=== PATIENT | female | born 1950 ===

== ENCOUNTER → 2023-08-16 13:43 | Outpatient (BNVA) | payer MEDICARE, OTHER, SELFPAY | PROVIDERS: Referring Provider Registered Nurse; Visit Provider Internal Medicine Cardiovascular Disease | DX: R07.9 Chest pain, unspecified (principal); R94.31 Abnormal electrocardiogram [ECG] [EKG] | CPT/HCPCS: 93005; 99214 ==

== ENCOUNTER 2023-09-10 12:54 | Outpatient (CLI) | payer MEDICARE, OTHER, SELFPAY ==
--- NOTE | 2023-09-10 13:15 | USCV_ITS ---
Rosario Grissom Age: 73 Gender: F : 1950 Exam Date: 09/10/2023 13:29 Ordering Phys: Linda Calle MD ([email or web address]) Technologist: ANDRE [place]am [place] [facility] [place]: CHEST PAIN AND SHORTNESS OF BREATH BP: 128 / 86 HR: 77 Rhythm: Sinus Technical Quality: Adequate MEASUREMENTS (Male / Female) Normal Values 2D ECHO LV Diastolic Diameter PLAX 3.8 cm 4.2 - 5.9 / 3.9 - 5.3 cm IVS Diastolic Thickness 1.4 cm 0.6 - 1.0 / 0.6 - 0.9 cm IVS Systolic Thickness 2.0 cm LVPW Diastolic Thickness 1.9 cm 0.6 - 1.0 / 0.6 - 0.9 cm LVPW Systolic Thickness 2.3 cm LVOT Diameter 2.0 cm LV Ejection Fraction 2D Teich 65.8 % LV Ejection Fraction MOD 4C 61.2 % LV Ejection Fraction MOD 2C 59.1 % LV Ejection Fraction 2C AL 61.6 % LA Diameter 3.4 cm RA Systolic Volume 4C AL 12.2 ml RA Systolic Volume 4C MOD 11.7 ml LA Sys Volume AL 23.3 cm cubed LA Sys Volume Index AL 14.0 cm cubed/m squared Aorta at Sinotubular Diameter 2.3 cm IVC Diameter 1.8 cm M-MODE LA Ao Ratio MM 1.2 AV Cusp Separation MM 1.6 cm DOPPLER AV Peak Velocity 141.0 cm/s LVOT Peak Velocity 99.0 cm/s AV Area Cont Eq vti 2.6 cm squared AV Area Cont Eq pk 2.2 cm squared MV Peak Velocity 112.0 cm/s MV Area PHT 3.0 cm squared Mitral E to A Ratio 0.7 TR Peak Velocity 141.0 cm/s TR Peak Gradient 8.0 mmHg TR Mean Velocity 111.0 cm/s TR Mean Gradient 5.3 mmHg TR Velocity Time Integral 37.1 cm TV Peak E Velocity 51.0 cm/s Right Atrial Pressure 3.0 mmHg Pulmonary Artery Systolic Pressu 11.0 mmHg PV Peak Velocity 109.0 cm/s RV Ejection Time 0.3 s FINDINGS Left Ventricle Normal left ventricular size and systolic function, EF 61%. No regional wall motion abnormalities. Mild left ventricular hypertrophy. Grade I/IV diastolic dysfunction (abnormal relaxation filling pattern), normal to mildly elevated filling pressures. Right Ventricle The right ventricle is normal in size and function. Right Atrium The right atrium is normal in size. Left Atrium Mildly increased left atrial size. Mitral Valve No gross abnormalities noted Aortic Valve Thickened aortic valve. Tricuspid Valve No gross abnormalities noted Pulmonic Valve Trace pulmonary valve regurgitation. Pericardium Normal pericardium without effusion. Aorta Normal ascending aorta dimension. IVC Normal inferior vena cava. CONCLUSIONS Normal left ventricular size and systolic function, EF 61%. No regional wall motion abnormalities. Mild left ventricular hypertrophy. Grade I/IV diastolic dysfunction (abnormal relaxation filling pattern), normal to mildly elevated filling pressures. Mildly increased left atrial size. Thickened aortic valve. Trace pulmonary valve regurgitation. There is no pericardial effusion. There are no intracardiac masses. No similar previous studies are available for comparison Dr Maria Dolores Wagner MD FACC (Electronically Signed) Final Date: 14 September 2023 00:46 S
== END 2023-09-10 12:55 | disposition home or self-care (01) ==
LOC: RAD 12:54
PROVIDERS: Visit Provider Internal Medicine Cardiovascular Disease
DX: I35.0 Nonrheumatic aortic (valve) stenosis (principal); I50.30 Unspecified diastolic (congestive) heart failure; R07.9 Chest pain, unspecified; R06.02 Shortness of breath
CPT/HCPCS: 93306

== ENCOUNTER → 2024-02-14 10:38 | Outpatient (BNVA) | payer MEDICARE, OTHER, SELFPAY | PROVIDERS: Visit Provider Nurse Practitioner Family | DX: R94.31 Abnormal electrocardiogram [ECG] [EKG] (principal); E78.5 Hyperlipidemia, unspecified; I11.9 Hypertensive heart disease without heart failure; I45.9 Conduction disorder, unspecified | CPT/HCPCS: 99214 ==

== ENCOUNTER 2024-04-11 08:42 | Inpatient (IN) | payer MEDICARE, OTHER, SELFPAY ==
[2024-04-11] VITALS (23 sets, daily range): BP systolic 85–145; BP diastolic 47–88; PULSE 60–87; RESP 12–22; TEMP 36.3–37.4; O2SAT 93–100; BMI 24.0
--- NOTE | 2024-04-11 08:50 | XR_ITS ---
WS: [id number] XR hip LT 2-3V wo/w pel* [id number] REASON FOR EXAM: trauma FINDINGS: Near subcapital oblique fracture of the femoral neck with a short portion of the femoral neck still contiguous with the intact intertrochanteric bone. There is approximately a centimeter of superior displacement of the distal femoral fragment. Left pubic rami and acetabulum intact. XR/XR hip LT 2-3V wo/w pel* [id number] IMPRESSION: Acute left hip fracture as above.
--- NOTE | 2024-04-11 08:57 | W.ED.FALL ---
HPI - Fall General: Chief Complaint: Fall Stated Complaint: fall - left hip pain Time Seen by Provider: 04/11/24 08:44 History of Present Illness: 74-year-old female presents emergency room via EMS after ground-level fall at home while she was taking out her dog. She is complaining of left hip pain she denies any other injuries from the fall. Did not strike her head there is no loss conscious denies chest pain or abdominal pain. No previous injury to the left hip. She did receive 200 mcg fentanyl and 4 mg of Zofran en route. Associated symptoms-after fall: Denies abdominal pain, chest pain or neck pain Related Data Home Medications ?Medication ?Instructions ?Recorded ?Confirmed cholecalciferol (vitamin D3) 1,250 1,250 mcg PO .EVERY 2 WEEKS 08/16/23 04/11/24 mcg (50,000 unit) capsule famotidine 20 mg tablet 20 mg PO DAILY 08/16/23 04/11/24 gabapentin 100 mg capsule 100 mg PO DAILY 08/16/23 04/11/24 latanoprost 0.005 % eye drops 1 drp ophthalmic (eye) DAILY 08/16/23 04/11/24 losartan 50 mg-hydrochlorothiazide 1 tab PO DAILY 08/16/23 04/11/24 12.5 mg tablet metformin 1,000 mg tablet 1,000 mg PO BIDWMEAL 08/16/23 04/11/24 pantoprazole 40 mg tablet,delayed 40 mg PO DAILY 08/16/23 04/11/24 release simvastatin 20 mg tablet 20 mg PO DAILY 08/16/23 04/11/24 Allergies Allergy/AdvReac Type Severity Reaction Status Date / Time No Known Allergies Allergy Verified 02/14/24 10:48 Review of Systems Const: Denies: fever(s) or chills Card: Denies: chest pain Resp: Denies: dyspnea GI: Denies: abdominal pain : Denies: dysuria, urinary frequency or urinary urgency Musc: Reports: joint pain; Denies: neck pain or back pain Skin/Breast: Denies: rash PFSH ED PFSH: Medical History LVH (left ventricular hypertrophy) Junctional rhythm HLD (hyperlipidemia) HTN (hypertension) Social History Smoking and tobacco/nicotine status: never used tobacco/nicotine Physical Exam Const: GENERAL APPEARANCE: cooperative ORIENTATION/CONSCIOUSNESS: Yes awake, Yes oriented to person, Yes oriented to place and Yes oriented to time HENMT: COMMON NORMALS: normocephalic, atraumatic and hearing grossly normal bilaterally HEAD & SCALP: normocephalic and atraumatic Resp: COMMON NORMALS: normal respiratory effort, No retractions, No use of accessory muscles and clear to auscultation bilaterally AUSCULTATION: clear to auscultation bilaterally Cardio: COMMON NORMALS: regular rate, regular rhythm and No murmurs present (Cardio) RATE: regular rate RHYTHM: regular rhythm GI: COMMON NORMALS: Soft to palpation and No hepatosplenomegaly present AUSCULTATION: Yes normoactive bowel sounds PALPATION: Yes Soft to palpation, No Tenderness to palpation present (GI), No Guarding due to palpation present (GI) and Yes No hepatosplenomegaly present Extremity: COMMON NORMALS: normal to inspection, capillary refill normal, no clubbing, cyanosis or edema, no calf tenderness and no pedal edema NARRATIVE EXTREMITY EXAM: Left leg externally rotated dorsalis pedis posterior tibialis pulse present neurovascularly intact Neuro: SENSORIUM/ORIENTATION: Yes oriented to person, Yes oriented to place and Yes oriented to time Skin: COMMON NORMALS: no rashes or lesions noted GENERAL SKIN EXAM: no rashes or lesions noted Course Vital Signs: Vital signs: Vital Signs Temperature 99.3 F 04/11/24 12:39 Pulse Rate 87 04/11/24 12:39 Respiratory Rate 18 04/11/24 12:39 Blood Pressure 145/86 04/11/24 12:39 Pulse Oximetry 96 04/11/24 12:39 Oxygen Delivery Me thod Room Air 04/11/24 12:39 MDM - Fall Medical Decision Making Left femoral neck fracture. Other labs and imaging reviewed. EKG junctional rhythm no acute changes. Some LVH. Patient has not eaten since yesterday she is not any anticoagulants no other injuries no chest pain. Discussed with hospitalist and with orthopedics. Admit orders written Medical Records I reviewed the patient's medical records. Lab Data I reviewed the patient's lab results. 04/11/24 09:19 04/11/24 09:19 Radiology Impressions Hip/Pelvis X-Ray 04/11/24 08:50 IMPRESSION: Acute left hip fracture as above. Chest X-Ray 04/11/24 08:59 IMPRESSION: No acute chest abnormality. Laboratory Results WBC 4.13 10^3/uL (3.29-11.43) 04/11/24 09:19 RBC 4.37 10^6/uL (3.85-5.65) 04/11/24 09:19 Hgb 13.20 g/dL (11.27-16.99) 04/11/24 09:19 Hct 39.4 % (36-47) 04/11/24 09:19 MCV 90.2 fl (85-98) 04/11/24 09:19 MCH 30.2 pg (27-33) 04/11/24 09:19 MCHC 33.5 g/dL (30-55) 04/11/24 09:19 RDW 12.8 % (12.1-15.1) 04/11/24 09:19 Plt Count 204 10^3/cmm (157-399) 04/11/24 09:19 MPV 10.0 fL (7.4-10.4) 04/11/24 09:19 Neut % (Auto) 68.4 % 04/11/24 09:19 Lymph % (Auto) 18.4 % 04/11/24 09:19 Donley % (Auto) 12.3 % 04/11/24 09:19 Eos % (Auto) 0.2 % 04/11/24 09:19 Baso % (Auto) 0.5 % 04/11/24 09:19 Neut # (Auto) 2.82 10^3/uL (1.8-7.7) 04/11/24 09:19 Lymph # (Auto) 0.8 10^3/uL (0.8-4.8) 04/11/24 09:19 Donley # (Auto) 0.5 10^3/uL (0.2-0.9) 04/11/24 09:19 Eos # (Auto) 0.0 10^3/uL (0.0-0.8) 04/11/24 09:19 Baso # (Auto) 0.0 10^3/uL (0.0-0.1) 04/11/24 09:19 Nucleated RBC % (auto) 0 % 04/11/24 09:19 Nucleated RBCs # 0.0 /100WBC 04/11/24 09:19 Sodium 130 mmol/L (136-145) L 04/11/24 09:19 Potassium 3.9 mmol/L (3.5-5.1) 04/11/24 09:19 Chloride 91 mmol/L (98-107) L 04/11/24 09:19 Carbon Dioxide 23 mmol/L (22-29) 04/11/24 09:19 Anion Gap 19.9 (5-19) H 04/11/24 09:19 BUN 17 mg/dL (8-23) 04/11/24 09:19 Creatinine 1.1 mg/dL (0.5-0.9) H 04/11/24 09:19 GFR Calculation Not Reportable 04/11/24 09:19 Glucose 168 mg/dL (65-115) H 04/11/24 09:19 Calculated Osmolality 275 mOsm/kg (285-295) L 04/11/24 09:19 Calcium 9.4 mg/dL (8.5-10.5) 04/11/24 09:19 Total Bilirubin 0.5 mg/dL (0.15-1.2) 04/11/24 09:19 AST 47 U/L (0-32) H 04/11/24 09:19 ALT 31 U/L (0-33) 04/11/24 09:19 Alkaline Phosphatase 103 U/L (35-105) 04/11/24 09:19 Total Protein 8.4 g/dL (6.6-8.7) 04/11/24 09:19 Albumin 4.1 g/dL (3.5-5.2) 04/11/24 09:19 Globulin 4.3 g/dL (1.3-4.6) 04/11/24 09:19 Urine Color Yellow (Yellow) 04/11/24 10:01 Urine Appearance Clear (CLEAR) 04/11/24 10:01 Urine pH 5.5 (5-7) 04/11/24 10:01 Ur Specific Letts 1.025 (1.005-1.030) 04/11/24 10:01 Urine Protein Trace (Negative) A 04/11/24 10:01 Urine Glucose (UA) Negative (Normal) 04/11/24 10:01 Urine Ketones Trace (Negative) 04/11/24 10:01 Urine Blood Negative (Negative) 04/11/24 10:01 Urine Nitrate Negative (Negative) 04/11/24 10:01 Urine Bilirubin Negative (Negative) 04/11/24 10:01 Urine Urobilinogen 1.0 mg/dL (Negative) 04/11/24 10:01 Ur Leukocyte Esterase Negative (Negative) 04/11/24 10:01 Urine RBC 6-10 /hpf (0-2) 04/11/24 10:01 Urine WBC 0-5 /hpf (0-5) 04/11/24 10:01 Ur Squamous Epith Cells 0-5 /hpf (0-5) 04/11/24 10:01 Amorphous Sediment Trace /hpf 04/11/24 10:01 Urine Bacteria None seen /hpf (NONE) 04/11/24 10:01 Hyaline Casts 20.67 /lpf 04/11/24 10:01 Ur Oval Fat Bodies 1+ /hpf 04/11/24 10:01 All radiology interpretation(s) finalized by discharge Discharge Plan Discharge Patient Disposition: Admitted As Inpatient Admit Provider: Minh Evans Clinical Impression: Fracture of femoral neck, left Condition: Stable Coding Level of Care Code ED [employer] [employer] for Marcell Almeida
--- NOTE | 2024-04-11 08:59 | XR_ITS ---
WS: [id number] XR chest 1V portable [id number] REASON FOR EXAM: dyspnea/cough FINDINGS: Moderate tortuosity of the thoracic aorta. Heart at the upper limits of normal in size. The lungs are hypoexpanded. There is bilateral calcified granulomatous disease. No acute pulmonary parenchymal or pleural abnormality is noted. Moderate degenerative spondylosis in thoracic spine. XR/XR chest 1V portable [id number] IMPRESSION: No acute chest abnormality.
--- NOTE | 2024-04-11 08:59 | ECG_ITS ---
[facility] Date: 2024-04-11 Pat Name: Rosario Grissom Department: Room: Gender: Female Call Or Contact Centre Team Leader: : 1950 Requested By: Gregory Bolden Order Number: [id number] Reading MD: LEANNE PITTS Measurements Intervals [place] Rate: 87 P: -90 MN: 115 QRS: -13 QRSD: 90 T: 41 QT: 386 QTc: 466 Interpretive Statements JUNCTIONAL RHYTHM POSSIBLE ANTERIOR MYOCARDIAL INFARCTION , PROBABLY OLD [30 ms Q WAVE IN V3/V4, OR R < 0.2 mV IN V4] POSSIBLE INFERIOR MYOCARDIAL INFARCTION , PROBABLY OLD [30 ms Q WAVE IN II/aVF] ABNORMAL RHYTHM ECG Compared to ECG 08/16/2023 13:52:35 Myocardial infarct finding now present Electronically Signed On 04-12-2024 19:28:19 [employer] by LEANNE PITTS [id number]
[2024-04-11 09:31] LABS: Basophils % 0.5 %; Eosinophils % 0.2 %; Hematocrit 39.4 % (36-47); Lymphocytes # 0.8 10^3/uL (0.8-4.8); Lymphocytes % 18.4 %; Mean Corpuscular HGB Conc 33.5 g/dL (30-55); Mean Corpuscular Hemoglobin 30.2 pg (27-33); Mean Corpuscular Volume 90.2 fl (85-98); Monocytes # 0.5 10^3/uL (0.2-0.9); Monocytes % 12.3 %; Neutrophils # 2.82 10^3/uL (1.8-7.7); Neutrophils % 68.4 %; Nucleated Red Blood Cells % 0 %; Platelet Count 204 10^3/cmm (157-399); Red Blood Count 4.37 10^6/uL (3.85-5.65); Red Cell Distribution Width 12.8 % (12.1-15.1); White Blood Count 4.13 10^3/uL (3.29-11.43)
[2024-04-11 09:43] LABS: Alanine Aminotransferase 31 U/L (0-33); Albumin Level 4.1 g/dL (3.5-5.2); Alkaline Phosphatase 103 U/L (35-105); Anion Gap 19.9 (5-19); Aspartate Amino Transferase 47 U/L (0-32); Blood Urea Nitrogen 17 mg/dL (8-23); Calcium 9.4 mg/dL (8.5-10.5); Carbon Dioxide 23 mmol/L (22-29); Chloride 91 mmol/L (98-107); Creatinine Clr Calc Pharmacy 39.1463; Globulin 4.3 g/dL (1.3-4.6); Glucose 168 mg/dL (65-115); Osmolality Calculated 275 mOsm/kg (285-295); Potassium 3.9 mmol/L (3.5-5.1); Sodium 130 mmol/L (136-145); Total Bilirubin 0.5 mg/dL (0.15-1.2); Total Protein 8.4 g/dL (6.6-8.7)
[2024-04-11 10:10] LABS: Bilirubin Urine Negative (Negative); Blood Urine Negative (Negative); Glucose Urine UA Negative (Normal); Ketones Urine Trace (Negative); Leukocyte Esterase Urine Negative (Negative); Nitrate Urine Negative (Negative); Protein Urine Trace (Negative); Specific Gravity, Urine 1.025 (1.005-1.030); Urine Appearance Clear (CLEAR); Urine Color Yellow (Yellow); pH Urine 5.5 (5-7)
[2024-04-11 10:16] LABS: Add Urine Microscopic? YES; Bacteria Urine None Seen /hpf; Hyaline Casts Urine 20.67 /lpf; Squamous Epithelial Cell Urine 0-5 /hpf (0-5); WBC Urine 0-5 /hpf (0-5)
[2024-04-11 11:02] LABS: Amorphous Sediment Urine TRACE /hpf; Oval Fat Bodies Urine 1+ /hpf; UA Slide Review UA Slide Review Perf
[2024-04-11 11:06] LABS: Add Urine Culture? No
[2024-04-11] MEDS: morphine 4 mg/mL SDV 1 mL IVP (12:12)
--- NOTE | 2024-04-11 12:22 | PM.HP ---
Providers/Chief Complaint Admitting Physician: Minh Evans Chief Complaint: fall - left hip pain History of Present Illness Pleasant 74-year-old lady with history of HTN, HLD, LVH, junctional rhythm was walking her dogs, stumbled and fell, with resultant left hip pain in ER found to have left femoral neck fracture. She would like to pursue repair and orthopedic surgery is consulted with planned surgery for later today. She reports she has been at baseline state of health. Denies any history of CAD or CHF, lung conditions, has not had any chest pain or pressure on exertion, no dyspnea on exertion or other complaints. Review of Systems Const: Denies: fever(s), chills, body aches or malaise Eyes: Denies: change in vision ENMT: Denies: throat pain, oral sores or ear or mastoid pain Card: Denies: chest pain, edema, pre-syncope or dyspnea on exertion Resp: Denies: dyspnea, productive cough, change in phlegm color or hemoptysis GI: Denies: abdominal pain, nausea, vomiting, diarrhea or constipation : Denies: flank pain, urinary frequency or hematuria Musc: Denies: back pain, joint swelling or joint redness Skin/Breast: Denies: rash or new lesions Medications/Allergies Home Medications ?Medication ?Instructions ?Recorded ?Confirmed ?Last Taken ?Type cholecalciferol (vitamin D3) 1,250 1,250 mcg PO .EVERY 2 WEEKS 08/16/23 04/11/24 Unknown History mcg (50,000 unit) capsule famotidine 20 mg tablet 20 mg PO DAILY 08/16/23 04/11/24 04/11/24 History gabapentin 100 mg capsule 100 mg PO DAILY 08/16/23 04/11/24 04/11/24 History latanoprost 0.005 % eye drops 1 drp ophthalmic (eye) DAILY 08/16/23 04/11/24 04/11/24 History losartan 50 mg-hydrochlorothiazide 1 tab PO DAILY 08/16/23 04/11/24 04/11/24 History 12.5 mg tablet metformin 1,000 mg tablet 1,000 mg PO BIDWMEAL 08/16/23 04/11/24 04/11/24 History pantoprazole 40 mg tablet,delayed 40 mg PO DAILY 08/16/23 04/11/24 04/11/24 History release simvastatin 20 mg tablet 20 mg PO DAILY 08/16/23 04/11/24 04/11/24 History Allergies Allergy/AdvReac Type Severity Reaction Status Date / Time No Known Allergies Allergy Verified 02/14/24 10:48 PFSH Acute PFSH: Medical History LVH (left ventricular hypertrophy) Junctional rhythm HLD (hyperlipidemia) HTN (hypertension) Social History Smoking and tobacco/nicotine status: never used tobacco/nicotine Vitals/I&O/Wt Last Vital Signs Temp 98.1 F 04/11/24 08:54 Pulse 84 04/11/24 10:06 Resp 16 04/11/24 12:12 BP 124/88 04/11/24 10:06 Pulse Ox 98 04/11/24 10:06 04/10/24 04/11/24 04/11/24 22:59 06:59 14:59 Intake Total 0 / 0 Balance 0 / 0 Weight last 48 hrs Weight 61.689 kg Physical Exam Const: COMMON NORMALS: patient oriented x3 and alert GENERAL APPEARANCE: cooperative ORIENTATION/CONSCIOUSNESS: Yes awake HENMT: COMMON NORMALS: oropharynx normal Neck/C-Spine: COMMON NORMALS: no JVD Resp: COMMON NORMALS: normal respiratory effort and clear to auscultation bilaterally AUSCULTATION: clear to auscultation bilaterally Cardio: COMMON NORMALS: no JVD, regular rhythm, S1 normal heart sound present, S2 normal heart sound present and No murmurs present (Cardio) RHYTHM: regular rhythm HEART SOUNDS: S1 normal heart sound present and S2 normal heart sound present GI: COMMON NORMALS: Normal to inspection, nondistended, normoactive bowel sounds present, Soft to palpation and non-tender PALPATION: Yes Soft to palpation Extremity: COMMON NORMALS: no joint enlargement and no pedal edema Neuro: COMMON NORMALS: patient oriented x3 and moves all extremities SENSORIUM/ORIENTATION: Yes alert Skin: COMMON NORMALS: no rashes or lesions noted GENERAL SKIN EXAM: no rashes or lesions noted Urinary Catheter Management: Figueroa: Cath Placed During This Visit: yes Urinary Catheter Date of Insertion: 04/11/24 Urinary Catheter Time of Insertion: 10:06 Data 04/11/24 09:19 04/11/24 09:19 A&P Assessment and plan (1) Fracture of femoral neck, left: After mechanical fall, stumbled while walking her dogs. Resultant left femoral neck fracture. She would like to seek repair, orthopedics has been consulted in ER. Reviewed vitals, CBC, CMP, UA, EKG, on my aspiration junctional rhythm, pending official read, chest x-ray, hip pelvis x-ray, ER provider note, discussed with ER provider. Reviewed cardiology note. She reports has been at baseline state of health. Does have history of mild LVH, junctional rhythm. Would avoid any lucille blocking agents if possible. She is currently maintaining good blood pressure 124/88. Minimize risk of hypotension with LVH. Would monitor on telemetry. She understands that her underlying conditions do add to her surgical/anesthesia risk. Denies any exertional chest pain or pressure, dyspnea. No known history of coronary disease. Reviewed last echocardiogram. SCD for VTE prophylaxis for now until after surgery. For pain control acetaminophen, morphine for severe breakthrough pain. Case management consultation for disposition planning. Will need PT assessment postoperatively. Incentive spirometer. Plan Junctional rhythm: Avoid lucille blocking agents/bradycardia inducing agents. Mild LVH: Minimize hypotension HTN: At home normally on losartan-HCTZ, hold for now. Reassess blood pressures. HLD: Continue simvastatin GERD: Continue PPI PDMP PDMP Reviewed: Not Reviewed Attestations Medical Necessity Statement*: Admission over 2 midnights anticipated for assessment management of left hip fracture in a lady with underlying LVH, junctional rhythm. and High MDM includes amount and/or complexity of data reviewed/ordered [ previous or external records, resulted lab(s)/test(s), ordered lab(s)/test(s), independent test interpretation and other healthcare professional discussion] and described risk of complication, morbidity or mortality of management as documented Diagnoses Fracture of femoral neck, left S72.002A
[2024-04-11 12:51] LABS: Glucose Point of Care 149 mg/dL (70-110)
[2024-04-11] MEDS: CELEcoxib 200 mg Capsule 400 MG PO (12:56)
[2024-04-11] MEDS: gabapentin 300 mg Capsule PO (12:56)
[2024-04-11] MEDS: acetaminophen 1,000 MG/100 ML PIGGYBACK 400 MG IV (12:56)
--- NOTE | 2024-04-11 13:32 | PM.CONSULT ---
Providers/Reason For Consult Consulting Physician/Specialty*: Mini Noel MD Reason for Consult*: Left subcapital hip fracture Requesting Physician: Gregory Medina MD Attending Physician: Minh Evans History of Present Illness History of Present Illness Rosario Grissom is a 74 year old female who presented to the emergency department after falling in her home. The patient notes that she has a new little puppy and she was moving the puppy to its pad when she caught her foot and fell onto her left hip. She denied any loss of consciousness or other reason for her fall other than tripping. Past medical history is outlined in Dr. Evans's admission note. Review of Systems Const: Denies: fever(s), chills, body aches or malaise Eyes: Denies: change in vision ENMT: Denies: throat pain, oral sores or ear or mastoid pain Card: Denies: chest pain, edema, pre-syncope or dyspnea on exertion Resp: Denies: dyspnea, productive cough, change in phlegm color or hemoptysis GI: Denies: abdominal pain, nausea, vomiting, diarrhea or constipation : Denies: flank pain, dysuria, urinary frequency, urinary urgency or hematuria Musc: Reports: joint pain; Denies: neck pain, back pain, joint swelling or joint redness Skin/Breast: Denies: rash or new lesions Medications/Allergies Home Medications ?Medication ?Instructions ?Recorded ?Confirmed ?Last Taken ?Type cholecalciferol (vitamin D3) 1,250 1,250 mcg PO .EVERY 2 WEEKS 08/16/23 04/11/24 Unknown History mcg (50,000 unit) capsule famotidine 20 mg tablet 20 mg PO DAILY 08/16/23 04/11/24 04/11/24 History gabapentin 100 mg capsule 100 mg PO DAILY 08/16/23 04/11/24 04/11/24 History latanoprost 0.005 % eye drops 1 drp ophthalmic (eye) DAILY 08/16/23 04/11/24 04/11/24 History losartan 50 mg-hydrochlorothiazide 1 tab PO DAILY 08/16/23 04/11/24 04/11/24 History 12.5 mg tablet metformin 1,000 mg tablet 1,000 mg PO BIDWMEAL 08/16/23 04/11/24 04/11/24 History pantoprazole 40 mg tablet,delayed 40 mg PO DAILY 08/16/23 04/11/24 04/11/24 History release simvastatin 20 mg tablet 20 mg PO DAILY 08/16/23 04/11/24 04/11/24 History Allergies Allergy/AdvReac Type Severity Reaction Status Date / Time No Known Allergies Allergy Verified 02/14/24 10:48 PFSH Acute PFSH: Medical History LVH (left ventricular hypertrophy) Junctional rhythm HLD (hyperlipidemia) HTN (hypertension) Social History Smoking and tobacco/nicotine status: never used tobacco/nicotine Vitals/I&O/Wt Last Vital Signs Temp 99.3 F 04/11/24 12:39 Pulse 87 04/11/24 12:39 Resp 18 04/11/24 12:39 BP 145/86 04/11/24 12:39 Pulse Ox 96 04/11/24 12:39 O2 Del Method Room Air 04/11/24 13:02 04/10/24 04/11/24 04/11/24 22:59 06:59 14:59 Intake Total 0 / 0 Balance 0 / 0 Weight last 48 hrs Weight 136 lb Physical Exam Const: COMMON NORMALS: no acute distress, average body habitus, patient oriented x3 and alert GENERAL APPEARANCE: cooperative and comfortable ORIENTATION/CONSCIOUSNESS: Yes awake HENMT: COMMON NORMALS: normocephalic and atraumatic HEAD & SCALP: normocephalic and atraumatic Eye: GENERAL EYE: appearance normal, both eyes and all related structures Chest: COMMONS NORMALS: normal inspection of the chest Resp: COMMON NORMALS: normal respiratory effort EFFORT & INSPECTION: Yes able to speak in complete sentences and Yes symmetric chest movement Extremity: LEFT LOWER EXTREMITY: Yes hip joint (No significant ecchymosis) Left hip: Yes palpation (Tender), Yes ROM (Not evaluated due to fracture) and Yes neurovascular exam (Intact distally) Neuro: COMMON NORMALS: patient oriented x3 SENSORIUM/ORIENTATION: Yes alert Psych: COMMON NORMALS: mental status grossly normal APPEARANCE: Yes grossly normal ATTITUDE: Yes calm and Yes engaged ATTENTION/CONCENTRATION: Yes attention grossly intact Skin: COMMON NORMALS: no rashes or lesions noted GENERAL SKIN EXAM: no rashes or lesions noted Urinary Catheter Management: Figueroa: Cath Placed During This Visit: yes Urinary Catheter Date of Insertion: 04/11/24 Urinary Catheter Time of Insertion: 10:06 Data 04/11/24 09:19 04/11/24 09:19 Xray Ortho: My impression: I reviewed the patient's left hip x-rays. There is a displaced subcapital left hip fracture without evidence of other injury. A&P Assessment and plan (1) Fracture of femoral neck, left: Patient was admitted through the emergency department after a fall at home onto her left hip. She suffered a left subcapital hip fracture with displacement. The patient was seen in the emergency room and was admitted to the hospitalist team. Discussion with the patient is undertaken regarding appropriate surgical care, and she is comfortable with the plan for bipolar hip arthroplasty. Risks and complications are discussed with her. Consents were signed in the preop holding area. Qualifiers: Encounter type: initial encounter Fracture type: closed Qualified Code(s): S72.002A - Fracture of unspecified part of neck of left femur, initial encounter for closed fracture PDMP PDMP Reviewed: Not Reviewed Coding Level of Care Code Acute Code for Chg Fwd Diagnoses Closed fracture of neck of left femur, initial encounter S72.002A Encounter type: initial encounter Fracture type: closed
--- NOTE | 2024-04-11 13:37 | ANES.PREANE2 ---
Pre-Anesthetic Assessment Height/Weight: Height 5 ft 3 in Weight 136 lb Temp Pulse Resp BP Pulse Ox O2 Del Method 99.3 F 87 18 145/86 96 Room Air 04/11/24 12:39 04/11/24 12:39 04/11/24 12:39 04/11/24 12:39 04/11/24 12:39 04/11/24 13:02 Preop Diagnosis: Left subcapital hip fracture Operation Date: 04/11/24 13:30 Proposed Procedures p Left bipolar hip arthroplasty(Left) - Mini Noel MD Was Beta Aurelia taken within 24 hours: N/A Was Clonidine taken within 24 hours: N/A Last intake: Intake Last Liquid Date 04/10/24 Last Liquid Time 22:00 Last Solid Date 04/10/24 Last Solid Time 22:00 Social No alcohol and No tobacco Exam alert, oriented x 3, clear to auscultation bilaterally and regular rate & rhythm Airway Submandibular: within normal limits Cervical ROM: within normal limits Mallampati: Class II Dentition: full Anesthetic Plan ASA status: 2 Anesthesia: General Other: No prior issues with anesthesia NPO since yesterday Patient has a history of hypertension on losartan? hydrochlorothiazide GERD on Protonix EKG showing junctional rhythm. This is similar to previous EKG 1 year ago Labs 04/11/2024 reviewed and acceptable for procedure Type and screen pending Plan for general anesthesia Medications/Allergies Home Medications ?Medication ?Instructions ?Recorded ?Confirmed ?Last Taken ?Type cholecalciferol (vitamin D3) 1,250 1,250 mcg PO .EVERY 2 WEEKS 08/16/23 04/11/24 Unknown History mcg (50,000 unit) capsule famotidine 20 mg tablet 20 mg PO DAILY 08/16/23 04/11/24 04/11/24 History gabapentin 100 mg capsule 100 mg PO DAILY 08/16/23 04/11/24 04/11/24 History latanoprost 0.005 % eye drops 1 drp ophthalmic (eye) DAILY 08/16/23 04/11/24 04/11/24 History losartan 50 mg-hydrochlorothiazide 1 tab PO DAILY 08/16/23 04/11/24 04/11/24 History 12.5 mg tablet metformin 1,000 mg tablet 1,000 mg PO BIDWMEAL 08/16/23 04/11/24 04/11/24 History pantoprazole 40 mg tablet,delayed 40 mg PO DAILY 08/16/23 04/11/24 04/11/24 History release simvastatin 20 mg tablet 20 mg PO DAILY 08/16/23 04/11/24 04/11/24 History Allergies Allergy/AdvReac Type Severity Reaction Status Date / Time No Known Allergies Allergy Verified 02/14/24 10:48 [facility] Anesthesia Medical History LVH (left ventricular hypertrophy) Junctional rhythm HLD (hyperlipidemia) HTN (hypertension) Social History Smoking and tobacco/nicotine status: never used tobacco/nicotine Data Anesthesia 04/11/24 09:19 04/11/24 09:19 Short CBC 04/11/24 Range/Units 09:19 WBC 4.13 (3.29-11.43) 10^3/uL Hgb 13.20 (11.27-16.99) g/dL Hct 39.4 (36-47) % MCV 90.2 (85-98) fl Plt Count 204 (157-399) 10^3/cmm Neut % (Auto) 68.4 % Neut # (Auto) 2.82 (1.8-7.7) 10^3/uL BMP 04/11/24 09:19 Sodium 130 L Potassium 3.9 Chloride 91 L Carbon Dioxide 23 BUN 17 Creatinine 1.1 H Glucose 168 H Calcium 9.4 Liver Function 04/11/24 Range/Units 09:19 Total Bilirubin 0.5 (0.15-1.2) mg/dL AST 47 H (0-32) U/L ALT 31 (0-33) U/L Alkaline Phosphatase 103 (35-105) U/L Albumin 4.1 (3.5-5.2) g/dL Urine 04/11/24 Range/Units 10:01 Urine Color Yellow (Yellow) Urine Appearance Clear (CLEAR) Urine pH 5.5 (5-7) Ur Specific [place] 1.025 (1.005-1.030) Urine Protein Trace A (Negative) Urine Glucose (UA) Negative (Normal) Urine Ketones Trace (Negative) Urine Nitrate Negative (Negative) Urine Bilirubin Negative (Negative) Ur Leukocyte Esterase Negative (Negative) Urine RBC 6-10 (0-2) /hpf Urine WBC 0-5 (0-5) /hpf Cardiac Studies: Echocardiogram 09/10/23
[2024-04-11] MEDS: tranexamic acid 1,000 MG/100 ML PREMIX 600 MG IV (14:00)
[2024-04-11] MEDS: ceFAZolin 2,000 mg SDV 2000 MG IVP ×2 (14:22→21:39)
[2024-04-11] MEDS: tranexamic acid 1,000 mg/10mL SDV 1000 MG IV (14:22)
[2024-04-11] MEDS: BUPivacaine 0.5% INJ 30 mL INJECTION (14:23)
[2024-04-11] MEDS: ceFAZolin 1,000 mg SDV 1000 MG IRRIGATION (14:24)
[2024-04-11] MEDS: BUPivacaine liposome 13.3 mg/mL SDV 20 mL 266 MG INFILTRATI (14:25)
[2024-04-11] MEDS: VANCOMYCIN ADD-Vantage 1,000 MG VIAL 1000 MG INTRA-ARTI (14:26)
--- NOTE | 2024-04-11 15:42 | PM.OP ---
Operative Report Date of procedure: April 11, 2024 Pre-op diagnosis: Left subcapital hip fracture Post-op diagnosis: Left subcapital hip fracture Post-op findings: Significantly displaced left subcapital hip fracture Procedure done: Left bipolar hip arthroplasty Implants: The [place] total hip system with a size 4 Insignia standard offset neck angle hip stem with a size 28 mm x +0 mm femoral head and a universal head bipolar component size 46 mm outer diameter by 28 mm inner diameter Specimens removed/disposition: Femoral head, disposed of Surgeon: Mini Noel MD Residential Mortgage Manager: Allegra Mcadams, nurse practitioner, who services were required for positioning, exposure, manipulation, and retraction. Additional manipulation was also provided by [facility] operating room technicians. Anesthesia: General (Intubated, ASA 2) Estimated blood loss (mL): 25 IV fluids (mL): 1,000 Urine output (mL): 100 Complications: None Findings: Stable at 90 degrees of flexion with 80 degrees of internal rotation and 30 degrees of adduction. Also stable to toe hang and external rotation. Condition: stable Disposition: PACU (Then admit to floor for postoperative rehabilitation and pain management) Brief History: Rosario Grissom is a 74 year old female who presented to the emergency department after falling in her home. The patient notes that she has a new little puppy and she was moving the puppy to its pad when she caught her foot and fell onto her left hip. She denied any loss of consciousness or other reason for her fall other than tripping. Past medical history is outlined in Dr. Evans's admission note. Patient is seen in the preoperative holding area with her . Surgical procedure is described in detail. Risk and complications were discussed with the patient and her . Consents were signed and questions were answered. Procedure: Patient was brought to the operating theater.? She was transferred to the operating room table and subsequently administered a general anesthesia intubated, ASA 2. This was well-tolerated.? Following administration of adequate anesthesia, the patient was placed in full lateral position and held in position with a pegboard.? The patient's left lower extremity was then prepped and draped in usual fashion utilizing DuraPrep.? It was draped free.? Following prepping and draping, a surgical pause was performed.? At the time of surgical pause, we identified the site and side of surgery.? We also identified the patient and preoperative surgical markings. Confirmation was made of equipment availability.? Additionally, the patient's preoperative IV antibiotic, Ancef 2 g once confirmed.? X-rays were also reviewed. Following the surgical pause, an incision was made centering over the patient's greater trochanter continuing proximally and distally as necessary to allow access to the hip joint.? Dissection continued through skin and soft tissues using a scalpel, and hemostasis was obtained using electrocautery. The tensor fascia brian was identified and incised longitudinally.? Sciatic nerve was identified and protected throughout the surgical procedure.? A Charnley U retractor was placed after the tensor fascia brian had been incised longitudinally, and the sciatic nerve had been identified. The hip was internally rotated, and the piriformis muscle was identified and tagged. Piriformis muscle along with the remaining short external rotators were then incised from the posterior aspect of the hip joint.? These were retracted posteriorly.? The capsule was entered in a T-type fashion with the edges being tagged, and subsequently, the hip was dislocated. The labrum was excised with further excision accomplished once the femoral head was removed.? Following hip dislocation, a femoral neck osteotomy was accomplished in the appropriate position. We then evaluated the acetabulum. The femur was retracted anteriorly.? Soft tissues were retracted, and the labrum was removed. Femoral head was measured, and trial implants were placed. The chosen implant was a size 46 bipolar shell. This was noted to have excellent fit. Attention was directed to the proximal femur.? The proximal femur was lifted out of the wound.? A canal finder was passed after the box chisel.? The reamer was used to lateralize.? We then began broaching. We broached sequentially and had excellent fit and fill with the size 4 broach. Trial was initially accomplished with a +0 mm offset femoral head inside the universal bipolar head component size 46 mm outer by 38 mm inner diameter. The hip was again reduced and placed through range of motion. With this construct of a size 4 broach and a +0mm offset femoral head, we had the above-noted stabilities. Leg lengths were felt to be equal. With the final construct as noted, we had the above-noted stabilities and appropriate leg length. Therefore, trial components were removed after the hip was dislocated. The size 4 Insignia standard offset neck angle stem was impacted into position without difficulty and onto this was placed a +0 mm x 28 mm femoral head which had been assembled into the universal head bipolar component size 46 mm outer diameter by 28 mm inner diameter.? With a +0 mm femoral head, we had the above-noted stability.? The stem was noted to seat nicely prior to placement of the femoral head.? The wound was copiously irrigated with 20 mL of Betadine and 500 mL of normal saline mixed together.? Subsequently, we suctioned this out and irrigated the wound copiously with normal saline.? At this time, with all components in appropriate position, the hip was reduced.? Following reduction of the prosthesis once again, we confirmed the stability of the hip.? Leg lengths were also felt to be satisfactory. Exparel was injected. Being satisfied with the prosthesis, attention was directed to closure.? Closure was accomplished with 0 Vicryl in the capsular tissues.? Piriformis was reattached with 0 Vicryl as well.? Tensor fascia brian was closed with 0 Vicryl in an interrupted fashion.? The subcutaneous tissues were closed with 2-0 Monocryl STRATAFIX.? Vancomycin powder and a Gelfoam thrombin mixture was placed into the wound as well.? The skin was closed with a running 3-0 Monocryl strata fix followed by Dermabond Kristi and Brennan. The patient was placed in an abduction pillow.? Patient was transferred off the operative bed and was brought to the recovery room in a satisfactory condition. Related Problem List Diagnoses (1) Fracture of femoral neck, left:
--- NOTE | 2024-04-11 15:55 | XR_ITS ---
WS: [id number] XR pelvis 1-2V* [id number] REASON FOR EXAM: S/P PARISH FINDINGS: Total left hip arthroplasty. The components of the arthroplasty are intact and in proper position and alignment. No focal bone abnormality. XR/XR pelvis 1-2V* [id number] IMPRESSION: Total left hip arthroplasty without abnormality.
--- NOTE | 2024-04-11 16:19 | ANE.PACU2 ---
Inpatient post-anesthesia follow up: Airway intact: Yes Vital signs: Temperature 98.3 F Pulse Rate 78 Respiratory Rate 17 Blood Pressure 127/71 Pulse Oximetry 96 Oxygen Delivery Me thod Nasal Cannula Oxygen Flow Rate 2 Fraction of Inspir ed Oxygen Hydration adequate: Yes Nausea and vomiting: No Pain level: 1 Mental status: Baseline
[2024-04-11 16:57] LABS: Glucose Point of Care 163 mg/dL (70-110)
--- NOTE | 2024-04-11 18:04 | PC.NURSE ---
Patient back from surgery and is unable to stay awake long enough to complete assessment as she still has anaesthesia on board.
[2024-04-12] VITALS (12 sets, daily range): BP systolic 103–131; BP diastolic 59–74; PULSE 69–86; RESP 15–17; TEMP 36.4–36.8; O2SAT 92–96
[2024-04-12] MEDS: ceFAZolin 2,000 mg SDV 2000 MG IVP ×2 (05:16→13:38)
[2024-04-12] MEDS: TRAMadol 50 mg Tablet PO ×2 (05:19→13:38)
[2024-04-12 05:28] LABS: Hematocrit 33.4 % (36-47); Lymphocytes # 0.8 10^3/uL (0.8-4.8); Lymphocytes % 16.1 %; Mean Corpuscular HGB Conc 33.2 g/dL (30-55); Mean Corpuscular Hemoglobin 29.7 pg (27-33); Mean Corpuscular Volume 89.3 fl (85-98); Mean Platelet Volume 10.3 fL (7.4-10.4); Monocytes # 0.5 10^3/uL (0.2-0.9); Monocytes % 10.7 %; Neutrophils # 3.47 10^3/uL (1.8-7.7); Neutrophils % 72.8 %; Nucleated Red Blood Cells % 0 %; Platelet Count 156 10^3/cmm (157-399); Red Blood Count 3.74 10^6/uL (3.85-5.65); Red Cell Distribution Width 12.9 % (12.1-15.1); White Blood Count 4.77 10^3/uL (3.29-11.43)
[2024-04-12 05:45] LABS: Anion Gap 18.5 (5-19); Blood Urea Nitrogen 17 mg/dL (8-23); Calcium 8.3 mg/dL (8.5-10.5); Carbon Dioxide 20 mmol/L (22-29); Chloride 95 mmol/L (98-107); Creatinine Clr Calc Pharmacy 43.6595; Glucose 133 mg/dL (65-115); Osmolality Calculated 271 mOsm/kg (285-295); Potassium 4.5 mmol/L (3.5-5.1); Sodium 129 mmol/L (136-145)
[2024-04-12] MEDS: oxyCODONE-APAP 5-325 mg Tablet PO ×4 (08:35→22:18)
[2024-04-12] MEDS: metformin 500 mg Tablet 1000 MG PO ×2 (08:35→17:47)
[2024-04-12] MEDS: atorvastatin 40 mg Tablet 20 MG PO (08:36)
[2024-04-12] MEDS: gabapentin 100 mg Capsule PO (08:36)
[2024-04-12] MEDS: pantoprazole DR 40 mg Tablet PO (08:36)
[2024-04-12] MEDS: aspirin 325 mg EC Tablet PO (08:37)
[2024-04-12] MEDS: sodium chloride 0.9% 1,000 ML 200 ML IV (08:37)
[2024-04-12] MEDS: latanoprost 0.005% Op Soln 2.5 mL Btl 1 DROP EYE-BOTH (08:45)
--- NOTE | 2024-04-12 18:16 | P.PN_ITS ---
Subjective 2 Subjective: Patient is doing well. She is up with physical therapy, but she is a little scared to go home because her is in the scooter and she would need to be taken care of herself. The nurses say that they will attempt to get her up onto stairs tomorrow as there is no in-house PT on Sunday. I am hopeful that she will be able to discharge if she gains confidence and is able to perform activities of daily living. Medications: Reviewed: Yes Vitals/I&O/Wt Last Vital Signs Temp 97.6 F 04/12/24 16:00 Pulse 70 04/12/24 16:00 Resp 17 04/12/24 16:33 BP 104/63 04/12/24 16:00 Pulse Ox 92 04/12/24 16:00 O2 Del Method Room Air 04/12/24 16:00 O2 Flow Rate 2 04/11/24 18:27 04/12/24 04/12/24 04/12/24 06:59 14:59 22:59 Intake Total 120 / 120 1240 / 1360 Output Total 300 / 625 950 / 950 Balance -300 / -325 120 / 120 290 / 410 Weight last 48 hrs Weight 140 lb 4.8 oz Weight 139 lb 4 oz Weight 136 lb Physical Exam 2 Const: COMMON NORMALS: no acute distress, average body habitus, patient oriented x3 and alert GENERAL APPEARANCE: cooperative and comfortable O RIENTATION/CONSCIOUSNESS: Yes awake HENMT: COMMON NORMALS: normocephalic and atraumatic HEAD & SCALP: n ormocephalic and atraumatic Eye: GENERAL EYE: appearance normal, both eyes and all related structures Chest: COMMONS NORMALS: normal inspection of the chest Resp: COMMON NORMALS: normal respiratory effort EFFORT & INSPECTION: Yes able to speak in complete sentences and Yes symmetric chest movement Extremity: LEFT LOWER EXTREMITY: Yes hip joint (Dressing dry and intact) Left hip: Yes palpation (No significant tenderness), Yes ROM (Not evaluated) and Yes neurovascular exam (Intact distally) Neuro: COMMON NORMALS: patient oriented x3 SENSORIUM/ORIENTATION: Yes alert Psych: COMMON NORMALS: mental status grossly normal APPEARANCE: Yes grossly normal ATTITUDE: Yes calm and Yes engaged ATTENTION/CONCENTRATION: Yes attention grossly intact Skin: COMMON NORMALS: no rashes or lesions noted GENERAL SKIN EXAM: no rashes or lesions noted Urinary Catheter Management: Figueroa: Cath Placed During This Visit: yes Reason for Continuing Indwelling Catheter: Perioperative Use in Selected Surgeries Urinary Catheter Date of Insertion: 04/11/24 Urinary Catheter Time of Insertion: 10:06 Data 04/12/24 04:09 04/12/24 04:09 A&P Assessment and plan (1) Fracture of femoral neck, left: Patient was admitted through the emergency department after a fall at home onto her left hip. She suffered a left subcapital hip fracture with displacement. The patient was seen in the emergency room and was admitted to the hospitalist team. The patient underwent uneventful left bipolar hip arthroplasty. She worked with physical therapy today and did well. Currently, she has no evidence of DVT. She will need to gain some confidence prior to being discharged to home as she will have to care for herself independently. Qualifiers: Encounter type: initial encounter Fracture type: closed Qualified Code(s): S72.002A - Fracture of unspecified part of neck of left femur, initial encounter for closed fracture PDMP PDMP Reviewed: Not Reviewed Attestations 2 Medical Necessity Statement*: Per hospitalist team Coding Level of Care Code Acute Code for Chg Fwd Diagnoses Closed fracture of neck of left femur, initial encounter S72.002A Encounter type: initial encounter Fracture type: closed
--- NOTE | 2024-04-12 18:19 | P.PN_ITS ---
Subjective 2 Subjective: Patient states she has been up in a chair but it was painful. She tells me she has bowel movements every 2 to 3 days at home she reports bowel movements every 2 to 3 days at home but states she feels okay Patient states she tripped and did not have syncope. She has a Morkie cross celeste and yorkie puppy she had picked up and she herself fell Vitals/I&O/Wt Last Vital Signs Temp 97.6 F 04/12/24 16:00 Pulse 70 04/12/24 16:00 Resp 17 04/12/24 16:33 BP 104/63 04/12/24 16:00 Pulse Ox 92 04/12/24 16:00 O2 Del Method Room Air 04/12/24 16:00 O2 Flow Rate 2 04/11/24 18:27 04/12/24 04/12/24 04/12/24 06:59 14:59 22:59 Intake Total 120 / 120 1240 / 1360 Output Total 300 / 625 950 / 950 Balance -300 / -325 120 / 120 290 / 410 Weight last 48 hrs Weight 63.639 kg Weight 63.163 kg Weight 61.689 kg Physical Exam 2 Narrative: General well-developed well-nourished female in no acute cardiopulmonary stress CV regular rate and rhythm Lungs clear to auscultation bilaterally Abdomen positive bowel sounds soft nontender Calves no tenderness pretibial edema Catheter in place light-colored urine Urinary Catheter Management: Figueroa: Cath Placed During This Visit: yes Reason for Continuing Indwelling Catheter: Perioperative Use in Selected Surgeries Urinary Catheter Date of Insertion: 04/11/24 Urinary Catheter Time of Insertion: 10:06 Data 04/12/24 04:09 04/12/24 04:09 Xray Ortho: Radiologist's impression: Total left hip arthroplasty. The components of the arthroplasty are intact and in proper position and alignment. No focal bone abnormality. A&P Assessment and plan (1) Fracture of femoral neck, left: After mechanical fall, stumbled while walking her dogs. Resultant left femoral neck fracture. Patient is doing well postop. Remove Figueroa in the morning Qualifiers: Encounter type: initial encounter Fracture type: closed Qualified Code(s): S72.002A - Fracture of unspecified part of neck of left femur, initial encounter for closed fracture (2) Hyponatremia: Likely due to HCTZ which will be stopped Continue losartan Plan Junctional rhythm: Avoid lucille blocking agents/bradycardia inducing agents. Mild LVH: Minimize hypotension HTN: At home normally on losartan-HCTZ, hold for now. Reassess blood pressures. HLD: Continue simvastatin GERD: Continue PPI PDMP PDMP Reviewed: Not Reviewed Attestations 2 Medical Necessity Statement*: Patient will remain in the hospital for further physical therapy removal of Figueroa and discharge planning Coding Level of Care Code Acute Code for Chg Fwd Diagnoses Closed fracture of neck of left femur, initial encounter S72.002A Encounter type: initial encounter Fracture type: closed Hyponatremia E87.1 Time Spent (min) 35
[2024-04-12 21:44] LABS: Urine Random Sodium 56 mmol/L
[2024-04-13] VITALS (15 sets, daily range): BP systolic 108–134; BP diastolic 59–75; PULSE 69–94; RESP 16–18; TEMP 36.8–37.1; O2SAT 93–97
[2024-04-13] MEDS: oxyCODONE-APAP 5-325 mg Tablet PO ×4 (05:41→23:46)
[2024-04-13 05:48] LABS: Basophils % 0.2 %; Eosinophils % 0.4 %; Hematocrit 30.9 % (36-47); Lymphocytes # 1.3 10^3/uL (0.8-4.8); Lymphocytes % 25.3 %; Mean Corpuscular Hemoglobin 30.3 pg (27-33); Mean Corpuscular Volume 91.7 fl (85-98); Mean Platelet Volume 10.2 fL (7.4-10.4); Monocytes # 0.6 10^3/uL (0.2-0.9); Monocytes % 11.8 %; Neutrophils # 3.11 10^3/uL (1.8-7.7); Neutrophils % 62.1 %; Nucleated Red Blood Cells % 0 %; Platelet Count 143 10^3/cmm (157-399); Red Blood Count 3.37 10^6/uL (3.85-5.65); Red Cell Distribution Width 13.2 % (12.1-15.1); White Blood Count 5.01 10^3/uL (3.29-11.43)
[2024-04-13 06:06] LABS: Anion Gap 15.2 (5-19); Blood Urea Nitrogen 10 mg/dL (8-23); Calcium 8.4 mg/dL (8.5-10.5); Carbon Dioxide 23 mmol/L (22-29); Chloride 99 mmol/L (98-107); Creatinine Clr Calc Pharmacy 54.9223; Glucose 109 mg/dL (65-115); Osmolality Calculated 276 mOsm/kg (285-295); Potassium 4.2 mmol/L (3.5-5.1); Sodium 133 mmol/L (136-145)
[2024-04-13] MEDS: atorvastatin 40 mg Tablet 20 MG PO (09:04)
[2024-04-13] MEDS: metformin 500 mg Tablet 1000 MG PO ×2 (09:05→17:30)
[2024-04-13] MEDS: pantoprazole DR 40 mg Tablet PO (09:06)
[2024-04-13] MEDS: gabapentin 100 mg Capsule PO (09:06)
[2024-04-13] MEDS: morphine 4 mg/mL SDV 1 mL IVP (09:07)
[2024-04-13] MEDS: aspirin 325 mg EC Tablet PO (09:07)
[2024-04-13] MEDS: latanoprost 0.005% Op Soln 2.5 mL Btl 1 DROP EYE-BOTH (09:10)
[2024-04-13] MEDS: ondansetron 2 mg/ML SDV 2 mL 4 MG IVP (11:56)
[2024-04-13] MEDS: TRAMadol 50 mg Tablet PO (14:36)
--- NOTE | 2024-04-13 16:41 | P.PN_ITS ---
Subjective 2 Subjective: Patient states she has been up in a chair but it was painful 4 over 10. She tells me she has bowel movements every 2 to 3 days at home she reports bowel movements every 2 to 3 days at home but states she feels okay. Has not had a bowel movement here yet but declines stimulant at this I am patient states she hopes to go directly here to the home does not want to go to rehab or [place] facility Vitals/I&O/Wt Last Vital Signs Temp 98.3 F 04/13/24 12:00 Pulse 87 04/13/24 14:00 Resp 17 04/13/24 12:00 BP 120/67 04/13/24 12:00 Pulse Ox 97 04/13/24 12:00 O2 Del Method Nasal Cannula 04/13/24 12:00 O2 Flow Rate 2 04/11/24 18:27 04/13/24 04/13/24 04/13/24 06:59 14:59 22:59 Intake Total 240 / 240 Output Total 200 / 1150 175 / 175 Balance -200 / 210 65 / 65 Weight last 48 hrs Weight 64.546 kg Weight 63.639 kg Weight 63.163 kg Physical Exam 2 Narrative: General well-developed well-nourished female in no acute cardiopulmonary stress CV regular rate and rhythm Lungs clear to auscultation bilaterally Abdomen positive bowel sounds soft nontender Calves no tenderness pretibial edema Catheter in place light-colored urine Right and left hip no swelling or edema no bruise Urinary Catheter Management: Figueroa: Cath Placed During This Visit: yes, but has since been removed by the nurse Reason for Continuing Indwelling Catheter: Decision to DC Catheter Urinary Catheter Date of Insertion: 04/11/24 Urinary Catheter Time of Insertion: 10:06 Date Urinary Catheter Removed: 04/13/24 Time Urinary Catheter Discontinued: 10:08 Data 04/13/24 05:40 04/13/24 05:40 A&P Assessment and plan (1) Fracture of femoral neck, left: After mechanical fall, stumbled while walking her dogs. Resultant left femoral neck fracture. Patient is doing well postop. Minimal drop in hematocrit we will just continue with aspirin for DVT prophy Qualifiers: Encounter type: initial encounter Fracture type: closed Qualified Code(s): S72.002A - Fracture of unspecified part of neck of left femur, initial encounter for closed fracture (2) Hyponatremia: Likely due to HCTZ which will be stopped Continue losartan Sodium is up to 133 he blood pressure 120/67 Plan Junctional rhythm: Avoid lucille blocking agents/bradycardia inducing agents. Mild LVH: Minimize hypotension HTN: At home normally on losartan-HCTZ, hold for now. Reassess blood pressures. HLD: Continue simvastatin GERD: Continue PPI PDMP PDMP Reviewed: Not Reviewed Attestations 2 Medical Necessity Statement*: Patient remains in hospital for physical therapy and discharge planning Coding Level of Care Code 52371 Diagnoses Closed fracture of neck of left femur, initial encounter S72.002A Encounter type: initial encounter Fracture type: closed Hyponatremia E87.1 Time Spent (min) 35
--- NOTE | 2024-04-13 17:06 | P.PN_ITS ---
Subjective 2 Subjective: Patient is working with physical therapy. Her plan is to be discharged to home. Her is disabled, and will be of minimal help to her. So she needs to be completely independent. Her biggest difficulty is getting up and down from bed. Medications: Reviewed: Yes Vitals/I&O/Wt Last Vital Signs Temp 98.3 F 04/13/24 12:00 Pulse 87 04/13/24 14:00 Resp 17 04/13/24 12:00 BP 120/67 04/13/24 12:00 Pulse Ox 97 04/13/24 12:00 O2 Del Method Nasal Cannula 04/13/24 12:00 O2 Flow Rate 2 04/11/24 18:27 04/13/24 04/13/24 04/13/24 06:59 14:59 22:59 Intake Total 240 / 240 Output Total 200 / 1150 175 / 175 Balance -200 / 210 65 / 65 Weight last 48 hrs Weight 142 lb 4.8 oz Weight 140 lb 4.8 oz Weight 139 lb 4 oz Physical Exam 2 Const: COMMON NORMALS: no acute distress, average body habitus, patient oriented x3 and alert GENERAL APPEARANCE: cooperative and comfortable O RIENTATION/CONSCIOUSNESS: Yes awake HENMT: COMMON NORMALS: normocephalic and atraumatic HEAD & SCALP: n ormocephalic and atraumatic Eye: GENERAL EYE: appearance normal, both eyes and all related structures Chest: COMMONS NORMALS: normal inspection of the chest Resp: COMMON NORMALS: normal respiratory effort EFFORT & INSPECTION: Yes able to speak in complete sentences and Yes symmetric chest movement Extremity: LEFT LOWER EXTREMITY: Yes hip joint (There is no significant ecchymosis.) Left hip: Yes ROM (Not evaluated) and Yes neurovascular exam (Intact distally, no evidence of DVT) Neuro: COMMON NORMALS: patient oriented x3 SENSORIUM/ORIENTATION: Yes alert Psych: COMMON NORMALS: mental status grossly normal APPEARANCE: Yes grossly normal ATTITUDE: Yes calm and Yes engaged ATTENTION/CONCENTRATION: Yes attention grossly intact Skin: COMMON NORMALS: no rashes or lesions noted GENERAL SKIN EXAM: no rashes or lesions noted Urinary Catheter Management: Figueroa: Cath Placed During This Visit: yes, but has since been removed by the nurse Reason for Continuing Indwelling Catheter: Decision to DC Catheter Urinary Catheter Date of Insertion: 04/11/24 Urinary Catheter Time of Insertion: 10:06 Date Urinary Catheter Removed: 04/13/24 Time Urinary Catheter Discontinued: 10:08 Data 04/13/24 05:40 04/13/24 05:40 A&P Assessment and plan (1) Fracture of femoral neck, left: Patient was admitted through the emergency department after a fall at home onto her left hip. She suffered a left subcapital hip fracture with displacement. The patient was seen in the emergency room and was admitted to the hospitalist team. The patient underwent uneventful left bipolar hip arthroplasty. On postop day 1, she worked with physical therapy and did well. Today, she struggled a little more. She has particular issues getting in and out of bed. Patient will be discharged to home, hopefully tomorrow, if she can work with physical therapy and be successful in her independence. Qualifiers: Encounter type: initial encounter Fracture type: closed Qualified Code(s): S72.002A - Fracture of unspecified part of neck of left femur, initial encounter for closed fracture PDMP PDMP Reviewed: Not Reviewed Attestations 2 Medical Necessity Statement*: Ongoing therapy and per hospitalist team Coding Level of Care Code Acute Code for Chg Fwd Diagnoses Closed fracture of neck of left femur, initial encounter S72.002A Encounter type: initial encounter Fracture type: closed
[2024-04-14] VITALS (9 sets, daily range): BP systolic 119–150; BP diastolic 56–81; PULSE 85–107; RESP 15–17; TEMP 36.8–36.9; O2SAT 94–98
[2024-04-14] MEDS: oxyCODONE-APAP 5-325 mg Tablet PO ×2 (06:35→16:26)
[2024-04-14] MEDS: ondansetron 2 mg/ML SDV 2 mL 4 MG IVP (06:35)
[2024-04-14] MEDS: metformin 500 mg Tablet 1000 MG PO (08:21)
[2024-04-14] MEDS: atorvastatin 40 mg Tablet 20 MG PO (08:21)
[2024-04-14] MEDS: gabapentin 100 mg Capsule PO (08:22)
[2024-04-14] MEDS: pantoprazole DR 40 mg Tablet PO (08:22)
[2024-04-14] MEDS: aspirin 325 mg EC Tablet PO (08:22)
--- NOTE | 2024-04-14 10:29 | PC.SOCIAL ---
IMM Updated Updated pt on IMM. No questions voiced. Provided pt a copy. Initialed, dated, & timed a copy & placed in chart.
[2024-04-14] MEDS: latanoprost 0.005% Op Soln 2.5 mL Btl 1 DROP EYE-BOTH (10:44)
--- NOTE | 2024-04-14 14:05 | P.DS_ITS ---
Discharge Providers Date of Admission: 04/11/24 10:22 Date of Discharge: April 14, 2024 Attending Provider at Admission: Minh Evans Attending Provider at Discharge: Salty Loredo MD Diagnoses at Discharge Discharge Diagnosis (1) Fracture of femoral neck, left: Status: Acute Qualifiers: Encounter type: initial encounter Fracture type: closed Qualified Code(s): S72.002A - Fracture of unspecified part of neck of left femur, initial encounter for closed fracture Reason for Visit Reason for Visit: fall - left hip pain Hospital Course Hospital Course This is a 74-year-old female with past medical history of hypertension hyperlipidemia LVH junctional rhythm who presents [facility] for fall Patient presented to [facility] for fracture of femoral left neck, status post surgical intervention by Dr. Noel, tolerated surgery well, discharged on aspirin for DVT prophylaxis, follow-up with primary care, follow- up with Dr. Noel Hyponatremia, likely second hydrochlorothiazide, which has been stopped Hemoglobin stable on discharge 10.9, no bloody or black stools Physical Exam Const: COMMON NORMALS: no acute distress and patient oriented x3 Resp: COMMON NORMALS: normal respiratory effort, No retractions, No use of accessory muscles and clear to auscultation bilaterally AUSCULTATION: clear to auscultation bilaterally Cardio: COMMON NORMALS: regular rate, regular rhythm, S1 normal heart sound present and S2 normal heart sound present RATE: regular rate RHYTHM: regular rhythm HEART SOUNDS: S1 normal heart sound present and S2 normal heart sound present GI: COMMON NORMALS: Normal to inspection, nondistended, normoactive bowel sounds present and non-tender Extremity: COMMON NORMALS: no pedal edema Neuro: COMMON NORMALS: patient oriented x3 Psych: COMMON NORMALS: mental status grossly normal Urinary Catheter Management: Figueroa: Cath Placed During This Visit: yes, but has since been removed by the nurse Reason for Continuing Indwelling Catheter: Decision to DC Catheter Urinary Catheter Date of Insertion: 04/11/24 Urinary Catheter Time of Insertion: 10:06 Date Urinary Catheter Removed: 04/13/24 Time Urinary Catheter Discontinued: 10:08 Discharge Data Studies Completed and Pending Completed Studies During Hospitalization Category Date Time Status XR chest 1V portable [id number] Stat Exams 04/11/24 08:59 Completed XR hip LT 2-3V wo/w pel* [id number] Stat Exams 04/11/24 08:50 Completed XR pelvis 1-2V* [id number] Routine Exams 04/11/24 15:55 Completed Pending at discharge Category Date Time Status CBC Auto Diff [Complete Blood Count w/Auto] Stat Lab 04/14/24 13:22 Results CMP [Comprehensive Metabolic Panel] Stat Lab 04/14/24 13:22 Received Radiology Impressions Hip/Pelvis X-Ray 04/11/24 08:50 IMPRESSION: Acute left hip fracture as above. Chest X-Ray 04/11/24 08:59 IMPRESSION: No acute chest abnormality. Pelvis X-Ray 04/11/24 15:55 IMPRESSION: Total left hip arthroplasty without abnormality. Laboratory Results WBC 5.01 10^3/uL (3.29-11.43) 04/13/24 05:40 RBC 3.37 10^6/uL (3.85-5.65) L 04/13/24 05:40 Hgb 10.20 g/dL (11.27-16.99) L 04/13/24 05:40 Hct 30.9 % (36-47) L 04/13/24 05:40 MCV 91.7 fl (85-98) 04/13/24 05:40 MCH 30.3 pg (27-33) 04/13/24 05:40 MCHC 33.0 g/dL (30-55) 04/13/24 05:40 RDW 13.2 % (12.1-15.1) 04/13/24 05:40 Plt Count 143 10^3/cmm (157-399) L 04/13/24 05:40 MPV 10.2 fL (7.4-10.4) 04/13/24 05:40 Neut % (Auto) 62.1 % 04/13/24 05:40 Lymph % (Auto) 25.3 % 04/13/24 05:40 Daniels % (Auto) 11.8 % 04/13/24 05:40 Eos % (Auto) 0.4 % 04/13/24 05:40 Baso % (Auto) 0.2 % 04/13/24 05:40 Neut # (Auto) 3.11 10^3/uL (1.8-7.7) 04/13/24 05:40 Lymph # (Auto) 1.3 10^3/uL (0.8-4.8) 04/13/24 05:40 Daniels # (Auto) 0.6 10^3/uL (0.2-0.9) 04/13/24 05:40 Eos # (Auto) 0.0 10^3/uL (0.0-0.8) 04/13/24 05:40 Baso # (Auto) 0.0 10^3/uL (0.0-0.1) 04/13/24 05:40 Nucleated RBC % (auto) 0 % 04/13/24 05:40 Nucleated RBCs # 0.0 /100WBC 04/13/24 05:40 Sodium 133 mmol/L (136-145) L 04/13/24 05:40 Potassium 4.2 mmol/L (3.5-5.1) 04/13/24 05:40 Chloride 99 mmol/L (98-107) 04/13/24 05:40 Carbon Dioxide 23 mmol/L (22-29) 04/13/24 05:40 Anion Gap 15.2 (5-19) 04/13/24 05:40 BUN 10 mg/dL (8-23) 04/13/24 05:40 Creatinine 0.8 mg/dL (0.5-0.9) 04/13/24 05:40 GFR Calculation Not Reportable 04/13/24 05:40 Glucose 109 mg/dL (65-115) 04/13/24 05:40 POC Glucose 163 mg/dL (70-110) H 04/11/24 16:53 Calculated Osmolality 276 mOsm/kg (285-295) L 04/13/24 05:40 Calcium 8.4 mg/dL (8.5-10.5) L 04/13/24 05:40 Total Bilirubin 0.5 mg/dL (0.15-1.2) 04/11/24 09:19 AST 47 U/L (0-32) H 04/11/24 09:19 ALT 31 U/L (0-33) 04/11/24 09:19 Alkaline Phosphatase 103 U/L (35-105) 04/11/24 09:19 Total Protein 8.4 g/dL (6.6-8.7) 04/11/24 09:19 Albumin 4.1 g/dL (3.5-5.2) 04/11/24 09:19 Globulin 4.3 g/dL (1.3-4.6) 04/11/24 09:19 Urine Color Yellow (Yellow) 04/11/24 10:01 Urine Appearance Clear (CLEAR) 04/11/24 10:01 Urine pH 5.5 (5-7) 04/11/24 10:01 Ur Specific [place] 1.025 (1.005-1.030) 04/11/24 10:01 Urine Protein Trace (Negative) A 04/11/24 10:01 Urine Glucose (UA) Negative (Normal) 04/11/24 10:01 Urine Ketones Trace (Negative) 04/11/24 10:01 Urine Blood Negative (Negative) 04/11/24 10:01 Urine Nitrate Negative (Negative) 04/11/24 10:01 Urine Bilirubin Negative (Negative) 04/11/24 10:01 Urine Urobilinogen 1.0 mg/dL (Negative) 04/11/24 10:01 Ur Leukocyte Esterase Negative (Negative) 04/11/24 10:01 Urine RBC 6-10 /hpf (0-2) 04/11/24 10:01 Urine WBC 0-5 /hpf (0-5) 04/11/24 10:01 Ur Squamous Epith Cells 0-5 /hpf (0-5) 04/11/24 10:01 Amorphous Sediment Trace /hpf 04/11/24 10:01 Urine Bacteria None seen /hpf (NONE) 04/11/24 10:01 Hyaline Casts 20.67 /lpf 04/11/24 10:01 Ur Oval Fat Bodies 1+ /hpf 04/11/24 10:01 Ur Random Sodium 56 mmol/L 04/12/24 21:15 Blood Type AB Positive 04/11/24 12:24 Rho(D) Type Rh positive 04/11/24 12:24 Antibody Screen Negative 04/11/24 12:24 Vitals Last Vital Signs Temp 98.3 F 04/14/24 12:00 Pulse 85 04/14/24 12:00 Resp 17 04/14/24 12:00 BP 129/73 04/14/24 12:00 Pulse Ox 96 04/14/24 12:00 O2 Del Method Room Air 04/14/24 12:00 O2 Flow Rate 2 04/11/24 18:27 Discharge Plan Discharge Patient Disposition: Home Health Service Condition: Stable Prescriptions: New aspirin 325 mg Tablet,Delayed Release (Dr/Ec) 325 mg PO DAILY 30 Days Qty: 30 0RF acetaminophen 325 mg Tablet 650 mg PO Q6H PRN (Reason: Mild/Mod Pain Or Temp >/= 101) 15 Days Qty: 90 0RF Continued cholecalciferol (vitamin D3) 1,250 mcg (50,000 unit) capsule 1,250 mcg PO .EVERY 2 WEEKS pantoprazole 40 mg tablet,delayed release (DR/EC) 40 mg PO DAILY latanoprost 0.005 % drops 1 drp ophthalmic (eye) DAILY metformin 1,000 mg tablet 1,000 mg PO BIDWMEAL simvastatin 20 mg tablet 20 mg PO DAILY famotidine 20 mg tablet 20 mg PO DAILY gabapentin 100 mg capsule 100 mg PO DAILY Held losartan-hydrochlorothiazide 50-12.5 mg tablet 1 tab PO DAILY Hold Instructions: Resume on 04/21/24. hold until you see primary care Discharge Orders: Discharge Order (Routine); Ordered 04/14/24 Ordered By: Salty Loredo Other Ambulatory Orders: DME: [facility] (Order) Location: None Selected Ordered By: Mini Noel Referrals: Replaced By [facility] [Outside] [facility] [Outside] Mini Noel MD [Physician] - 04/23/24 9:15 am Deondre Alexander [Referring] - 04/18/24 2:20 pm Discharge Diet: Cardiac Discharge Activity: Resume usual activity Patient Instructions: Tramadol (By mouth), Acute Wound Care (DC), Hip Fracture (ED), Opioid Safety, Post Anesthesia Care Discharge Attestations Time Spent in Discharge Care*: greater than 30 min Quality Metrics Clinical Quality Measures [ No reported AMI, CVA or VTE this stay] Coding Level of Care Code 66672 Total time (in minutes) for Discharge: 45 Diagnoses Closed fracture of neck of left femur, initial encounter S72.002A Encounter type: initial encounter Fracture type: closed
[2024-04-14 14:08] LABS: Basophils % 0.2 %; Eosinophils # 0.1 10^3/uL (0.0-0.8); Eosinophils % 0.8 %; Hematocrit 33.6 % (36-47); Lymphocytes # 1.3 10^3/uL (0.8-4.8); Mean Corpuscular HGB Conc 32.4 g/dL (30-55); Mean Corpuscular Hemoglobin 30.3 pg (27-33); Mean Corpuscular Volume 93.3 fl (85-98); Mean Platelet Volume 10.4 fL (7.4-10.4); Monocytes # 0.6 10^3/uL (0.2-0.9); Monocytes % 9.2 %; Neutrophils # 4.64 10^3/uL (1.8-7.7); Neutrophils % 69.5 %; Nucleated Red Blood Cells % 0 %; Platelet Count 185 10^3/cmm (157-399); Red Cell Distribution Width 13.3 % (12.1-15.1); White Blood Count 6.66 10^3/uL (3.29-11.43)
[2024-04-14 14:28] LABS: Alanine Aminotransferase 8 U/L (0-33); Albumin Level 3.2 g/dL (3.5-5.2); Alkaline Phosphatase 122 U/L (35-105); Anion Gap 18.3 (5-19); Aspartate Amino Transferase 37 U/L (0-32); Blood Urea Nitrogen 11 mg/dL (8-23); Calcium 8.9 mg/dL (8.5-10.5); Carbon Dioxide 21 mmol/L (22-29); Chloride 95 mmol/L (98-107); Creatinine Clr Calc Pharmacy 53.9305; Glucose 169 mg/dL (65-115); Osmolality Calculated 273 mOsm/kg (285-295); Potassium 4.3 mmol/L (3.5-5.1); Sodium 130 mmol/L (136-145); Total Bilirubin 0.8 mg/dL (0.15-1.2); Total Protein 7.2 g/dL (6.6-8.7)
--- NOTE | 2024-04-14 14:37 | P.PN_ITS ---
Subjective 2 Subjective: Patient is working with physical therapy. Her plan is to be discharged to home. Her is disabled, and will be of minimal help to her. So she needs to be completely independent. She continue to work with therapy and feels comfortable with her discharge to home. Medications: Reviewed: Yes Vitals/I&O/Wt Last Vital Signs Temp 98.3 F 04/14/24 12:00 Pulse 85 04/14/24 12:00 Resp 17 04/14/24 12:00 BP 129/73 04/14/24 12:00 Pulse Ox 96 04/14/24 12:00 O2 Del Method Room Air 04/14/24 12:00 O2 Flow Rate 2 04/11/24 18:27 04/13/24 04/14/24 04/14/24 22:59 06:59 14:59 Intake Total 240 / 240 Output Total 200 / 375 Balance -200 / -135 240 / 240 Weight last 48 hrs Weight 136 lb 9.6 oz Weight 142 lb 4.8 oz Physical Exam 2 Const: COMMON NORMALS: no acute distress, average body habitus, patient oriented x3 and alert GENERAL APPEARANCE: cooperative and comfortable O RIENTATION/CONSCIOUSNESS: Yes awake HENMT: COMMON NORMALS: normocephalic and atraumatic HEAD & SCALP: n ormocephalic and atraumatic Eye: GENERAL EYE: appearance normal, both eyes and all related structures Chest: COMMONS NORMALS: normal inspection of the chest Resp: COMMON NORMALS: normal respiratory effort EFFORT & INSPECTION: Yes able to speak in complete sentences and Yes symmetric chest movement Extremity: LEFT LOWER EXTREMITY: Yes hip joint (Dressings are dry and intact) Left hip: Yes inspection (No significant swelling or ecchymosis), Yes ROM (Not evaluated) and Yes neurovascular exam ( intact distally with no evidence of DVT) Neuro: COMMON NORMALS: patient oriented x3 SENSORIUM/ORIENTATION: Yes alert Psych: COMMON NORMALS: mental status grossly normal APPEARANCE: Yes grossly normal ATTITUDE: Yes calm and Yes engaged ATTENTION/CONCENTRATION: Yes attention grossly intact Skin: COMMON NORMALS: no rashes or lesions noted GENERAL SKIN EXAM: no rashes or lesions noted Urinary Catheter Management: Figueroa: Cath Placed During This Visit: yes, but has since been removed by the nurse Reason for Continuing Indwelling Catheter: Decision to DC Catheter Urinary Catheter Date of Insertion: 04/11/24 Urinary Catheter Time of Insertion: 10:06 Date Urinary Catheter Removed: 04/13/24 Time Urinary Catheter Discontinued: 10:08 Data 04/14/24 13:22 04/14/24 13:22 A&P Assessment and plan (1) Fracture of femoral neck, left: Patient was admitted through the emergency department after a fall at home onto her left hip. She suffered a left subcapital hip fracture with displacement. The patient was seen in the emergency room and was admitted to the hospitalist team. The patient underwent uneventful left bipolar hip arthroplasty. On postop day 1, she worked with physical therapy and did well. On postop day 2, she struggled a bit more. She particularly had difficulties getting in and out of bed. Since then, she has worked with physical therapy. She is felt safe for discharge to home. She will be home with home therapy. Qualifiers: Encounter type: initial encounter Fracture type: closed Qualified Code(s): S72.002A - Fracture of unspecified part of neck of left femur, initial encounter for closed fracture PDMP PDMP Reviewed: Last Reviewed 04/14/24 15:54 EST by Mini Noel MD Attestations 2 Medical Necessity Statement*: Per hospitalist team Coding Level of Care Code Acute Code for Chg Fwd Diagnoses Closed fracture of neck of left femur, initial encounter S72.002A Encounter type: initial encounter Fracture type: closed
== END 2024-04-14 17:48 | disposition home health service (06) | DRG 522 ==
LOC: ER 10:18 → ER IP 10:22 → MEDSURG 15:37
PROVIDERS: Internal Medicine; Specialist; Admitting Provider Internal Medicine; Emergency Provider Family Medicine; Visit Provider Family Medicine
PROC: 0SRS01Z Replacement of Left Hip Joint, Femoral Surface with Metal Synthetic Substitute, Open Approach (ICD-10-PCS; CPT 27125; principal; 2024-04-11 13:30)
DX: S72.012A Unspecified intracapsular fracture of left femur, initial encounter for closed fracture (principal); E87.1 Hypo-osmolality and hyponatremia; W01.0XXA Fall on same level from slipping, tripping and stumbling without subsequent striking against object, initial encounter; I10 Essential (primary) hypertension; E78.5 Hyperlipidemia, unspecified; T50.2X5A Adverse effect of carbonic-anhydrase inhibitors, benzothiadiazides and other diuretics, initial encounter; I51.7 Cardiomegaly; Z79.84 Long term (current) use of oral hypoglycemic drugs
CPT/HCPCS: 36415; 36416; 51702; 71045; 72170; 73502; 80048; 80053; 81001; 82962; 84300; 85025; 86850; 86900; 93005; 97116; 97161; 97166; 97530; 99285; A4216; C1713; C1776; C9290; J0131; J0690; J1100; J1171; J2250; J2270; J2405; J2704; J2710; J3010; J3370; J3490; J7030

== ENCOUNTER → 2024-04-23 09:10 | Outpatient (BNVA) | payer MEDICARE, OTHER, SELFPAY | PROVIDERS: Visit Provider Specialist | DX: Z98.890 Other specified postprocedural states (principal); Z96.642 Presence of left artificial hip joint | CPT/HCPCS: 73502; 99024 ==

== ENCOUNTER → 2024-06-25 13:50 | Outpatient (BNVA) | payer MEDICARE, OTHER, SELFPAY | PROVIDERS: PCP Family Medicine; Visit Provider Specialist | DX: Z98.890 Other specified postprocedural states (principal); Z96.642 Presence of left artificial hip joint | CPT/HCPCS: 73502; 99024 ==

== ENCOUNTER → 2024-11-05 15:53 | Outpatient (BNVA) | payer MEDICARE, OTHER, SELFPAY | PROVIDERS: PCP Family Medicine; Visit Provider Internal Medicine Cardiovascular Disease | DX: I51.7 Cardiomegaly (principal); I10 Essential (primary) hypertension; E78.5 Hyperlipidemia, unspecified; F91.9 Conduct disorder, unspecified | CPT/HCPCS: 99214 ==